=== PATIENT | female | born 1960 | race Caucasian/White ===

== ENCOUNTER 2017-11-19 10:28 | Inpatient (IN) ==
--- NOTE | 2017-11-19 12:28 | Emergency Department Note ---
General Adult HPI - General Chief complaint: Recheck/Abnormal Lab/Rx Stated complaint: Recheck Time Seen by Provider: 11/19/17 10:37 Source: patient Mode of arrival: ambulatory Limitations: no limitations - History of Present Illness HPI Narrative: This patient came to emergency about 2 AM with abdominal pain flank pain and was diagnosed with pyelonephritis which does appear to be a true diagnosis based on urinalysis. Her CT scan is been over read by the radiologist today showing concern for a perforated peptic ulcer. Patient was brought back to the emergency room where she was reevaluated. She has minimal pain at this time and minimal tenderness. I have consulted the surgeon transportation inspector Dr. Allen to evaluate the patient and she is here in the emergency room doing that. - Related Data Home Medications Medication Instructions Recorded Confirmed Dicyclomine [Bentyl] 10 mg PO QDAY 11/19/17 11/19/17 LORazepam [Ativan] 1 mg PO ONCE PRN 11/19/17 11/19/17 Zolpidem [Ambien] 5 mg PO HSP PRN 11/19/17 11/19/17 Previous Rx's Medication Instructions Recorded Ciprofloxacin [Cipro] 500 mg PO BID #20 tab 11/19/17 traMADol [Ultram] 50 mg PO Q4-6HP PRN #14 tab 11/19/17 Allergies Allergy/AdvReac Type Severity Reaction Status Date / Time No Known Drug Allergies Allergy Verified 11/19/17 02:10 Review of Systems All systems ED: reviewed and negative except as stated. Past Medical History - Past Medical History [facility] Narrative: Medical History Nausea & vomiting (Acute) UTI (urinary tract infection) (Acute) Medical history: Reports: other (IBS) Psychiatric history: Reports: anxiety Surgical history ED: Reports: non-contributory - Social History smoking status: Former smoker Alcohol use: Reports: Unknown Drug use: Reports: unknown Physical Exam Limitations: no limitations General appearance: alert Head: atraumatic Eye: Present: normal appearance ENT: normal exam Neck: Present: normal inspection Chest: Present: normal inspection Respiratory: Present: normal lung sounds bilaterally Cardiovascular: Present: regular rate, normal rhythm, normal heart sounds Abdominal: Present: soft. Absent: distention, tenderness Neurological: Present: alert Psychiatric: Present: normal affect, normal mood Skin: Present: warm, dry, intact Course Vital Signs Temperature 97.9 F 11/19/17 10:30 Pulse Rate 72 04/19/18 10:30 Respiratory Rate 18 11/19/17 10:30 Blood Pressure 163/102 11/19/17 10:30 Pulse Oximetry (%) 98 11/19/17 10:30 Temperature 97.9 F 11/19/17 10:30 Pulse Rate 67 11/19/17 12:55 Respiratory Rate 14 11/19/17 12:55 Blood Pressure 174/94 11/19/17 12:55 Pulse Oximetry (%) 98 11/19/17 12:55 Medical Decision Making - MDM Narrative Medical decision making narrative: This patient was admitted to the hospital by Dr. Allen for observation after an NG tube was placed. Disposition Pt seen by [facility] C[facility]/PA only: No Clinical Impression: UTI (urinary tract infection), Abdominal pain Disposition: Xfer As Outpt/Obs ([facility]) Condition: Good Time of Disposition: 13:23
[2017-11-19] MEDS ORDERED: PANTOPRAZOLE 80 MG in 0.9 % SODIUM CHLORIDE 100 ML IV SCH (12:30)
--- NOTE | 2017-11-19 12:58 | XRay Report ---
CLINICAL INFORMATION: Suspect perforated pyloric peptic ulcer ulcer. NG placement COMPARISON: None. FINDINGS: NG tube overlies the gastric body. Stool gas pattern is unremarkable. Contrast from CT performed approximately eight hours prior is seen within the large bowel;. Very small amount of gas is seen in the right upper quadrant is indeterminate location. There is no subdiaphragmatic air, although the film was taken supine position IMPRESSION: NG tube overlies the gastric body. No gross evidence of free air although this is a supine film which is typically insensitive for the presence small amounts of free air Interpreted and Authenticated by: Aron Olivier 11/19/17
[2017-11-19] MEDS: DEXTROSE 5%-1/2NS W/20MEQ KCL 1,000 ML IV SCH ×2 (13:53→22:52)
[2017-11-19] MEDS: PIPERACILLIN SODIUM/TAZOBACTAM 3.375 GM in DEXTROSE 5% IN WATER 50 ML IV SCH ×2 (13:55→21:56)
--- NOTE | 2017-11-19 14:42 | Consultation ---
DATE OF CONSULTATION: 11/19/2017 CHIEF COMPLAINT: The patient is seen in consultation at the request of Dr. Ocasio in the emergency department for a finding on a followup reading on a CT scan of a perforated peptic ulcer. Initial CT reading by teleradiology showed normal stomach and small bowel. No mention of this finding. HISTORY OF PRESENT ILLNESS: This is a 57-year-old woman who presented to the emergency department in the middle of last night with complaints of left upper abdominal pain. History is taken from the patient and supplied in part by her significant other who accompanies her at this visit. The patient states that for the past several months she has had problems with left upper abdominal pain, and when describing this puts her hand on the left upper quadrant just below the ribs. She states over the past couple of months, the pain has become more frequent, and it is associated with vomiting. She describes herself as having episodes where she will develop significant pain on the left upper part of her abdomen. She immediately will have a sensation out of the blue of vomiting without any preceding nausea, and then after vomiting she feels better. Mostly her emesis consists of yellow, thick fluid though at times she reports having vomited non-digested food, some of which may be food that she had several days ago. She also reports that she has had pain in the right upper abdomen for several years, but that has been chronic and has not changed. Regarding most recent pain that brought her to the ER, she states that she had an episode on Thursday of last week followed by emesis and then she immediately felt better. She had a similar episode on Thursday and that got better as well. She did have some pain yesterday when presenting to the ER and states that that pain has also improved. She did get one dose of pain medicine in the emergency department last night in the middle of the night. She has not taken any pain medications since discharge from the ER. Currently, she reports that she has no pain in her abdomen. She has been on dicyclomine for her upper abdominal pain for at least a year. She states that it had helped the right upper abdominal pain and that seems to be stable. It has never done anything to help the left-sided upper abdominal pain. Review of her medical records reveals patient underwent an EGD on 12/05/[address] Peña in [place]. Review of that note shows the esophagus, stomach and duodenum were examined and are reportedly normal. Biopsies taken at that time were negative for H. pylori. Duodenal mucosa had intact villous architecture and no increase in intraepithelial lymphocytes. Biopsies were negative for gastric metaplasia. Mild chronic gastritis was noted. In review of clinic notes from her evaluation at that time, it seems there was a CT scan performed in 07/2016. I have reviewed the images and reports from that scan, and there was noted to be a normal pancreas but a thickened wall of the pylorus suggestive of peptic ulcer disease. This scan was done prior to her evaluation with EGD. Review of the clinic notes also shows that the patient was taking Celebrex at that time, and the recommendation to stop this was made. She states that she still takes the Celebrex for hip pain. She also reports that recently she has had some aggravated pain and has been adding in ibuprofen intermittently to this. Other than the symptoms reported above, she denies any other GI symptoms of significant changes in her bowel movements. She says that at times she has constipation and at times normal or slightly loose stools, but this is fairly regular for her. REVIEW OF SYSTEMS: CONSTITUTIONAL: Denies fevers. Denies unintended or unexpected weight loss. CARDIOVASCULAR: Denies history of LA. Denies dyspnea on exertion. Denies chest pain or pressure at rest or with exertion. PULMONARY: Denies any history of asthma or emphysema. : Reports a history of interstitial cystitis. Has passed blood in her urine recently. Denies dysuria. NEUROLOGIC: Denies any history of seizure disorder or stroke. HEMATOLOGIC: Denies any history of DVT or PE. PAST MEDICAL HISTORY: Glaucoma, anxiety, chronic upper abdominal pain as per HPI, SI joint pain. MEDICATIONS: 1. Dicyclomine. 2. Ambien. 3. ___ 4. Lorazepam. 5. Methocarbamol. 6. Celebrex. 7. Recent addition of ibuprofen intermittently. ALLERGIES: No known drug allergies. SOCIAL HISTORY: The patient lives locally here in [place]. She works at the [employer]. She has a significant other who accompanies her here in this ER visit. She is a past smoker. She quit 30 years ago and smoked a half pack of cigarettes a day for approximately 10 years before then. She reports no current tobacco use. She reports occasional alcohol use, approximately 3 drinks a month. Denies any recreational drug use. PHYSICAL EXAMINATION: VITAL SIGNS: Temperature 97.9, pulse 72, respirations 18, blood pressure 163/102, O2 saturations 98% on room air. GENERAL APPEARANCE: This is a well-developed, well-nourished woman in no distress. She is sitting in the hospital bed on stretcher. No IVs are in place as she had previously been released from the ER and was called back. She is alert and oriented and appropriate in conversation. The patient is in good spirits and joking throughout the interview. HEENT: Head is normocephalic. Sclerae white. Mucous membranes are moist. CHEST: Breath sounds are clear to auscultation bilaterally. No rales or wheezes are heard. CARDIOVASCULAR: Reveals a regular rate and rhythm. ABDOMEN: Flat, soft, nontender to palpation in all four quadrants and nontender in the midepigastric region. The patient states that the pain that she had prior to her initial admit to the ER had completely resolved. There is no guarding on exam. No masses palpated. Percussion and palpation of the costovertebral angles reveals no tenderness. EXTREMITIES: Distal pulses are easily palpable. No edema. LABS AND STUDIES: CBC done last night in the emergency department showed white blood cell count of 9, hemoglobin of 12.9, hematocrit 37.8. There is a mild left shift with 79% granulocytes with upper limit of normal at 78%. Serum chemistries show a sodium of 135, potassium 3.6, chloride 97, CO2 24, BUN 22, creatinine 1.1, glucose 116, total bilirubin 0.4, AST 32, ALT 27, alkaline phosphatase 54, albumin 3.9, amylase 48, lipase 57. Urinalysis was negative for leukocyte esterase and nitrates. Occult blood was present with RBCs at 22 and WBC is also elevated at 20. Urine was reflex to culture. CT scan images were reviewed with the radiologist. Final impression is a 7 mm ruptured peptic ulcer in the superior wall of the gastric pylorus. There is a small amount of air and contrast seen passing through this area into the right upper quadrant. There does not appear to be free air beyond the area right at the area of perforation. There is some stranding in the left perinephric space. ASSESSMENT AND PLAN: Peptic ulcer with perforation by CT findings, the patient currently asymptomatic. This finding was not noted on initial teleradiology reading and was found this morning on review by in-house radiologist. The patient was called back to the ER because of this finding. She, however, remains fairly asymptomatic since her discharge from the ER earlier today. She is showing no signs of toxicity, including that her white blood cell count is fairly normal and her pulse remains normal and she has been afebrile. Additionally, she has no tenderness on examination of her abdomen. Clinically, she appears well and stable and given the small amount of free air noted on CT scan, it seems reasonable to try and manage this nonoperatively with gastric decompression, PPI use intravenously, bowel rest and antibiotics. If the patient, however, shows progression of illness toward peritonitis then operative intervention would be needed. This case was discussed with Dr. Arcos in GI medicine over the phone who is product management consultant today. He stated that given her asymptomatic presentation and otherwise normal vitals and the limited findings on CT, it seems reasonable to try and manage this nonoperatively as some patients have responded to this in the past. He agrees with PPI use and keeping her decompressed and n.p.o. Prior to restarting any diet, repeat imaging to confirm resolution of the perforation is recommended. He is available to follow up with the patient should her clinical situation change and his intervention is needed. I discussed findings on imaging, labs, and exam with the patient and her significant other who is present during this visit. At this time as she is clinically stable, we discussed options of surgical intervention versus trying nonoperative conservative management. She would like to avoid an operation, especially given that she is feeling well right now. I explained to her that there is not a guarantee that conservative management would work, but it seems reasonable to try, and if she shows progression toward peritonitis then operative intervention would be needed. She verbalized understanding and agreement with this plan. NG tube was placed in the emergency department and PPI was started. She will be admitted to the floor where she will be kept n.p.o. and started on IV fluids for maintenance. Followup exams and labs will be obtained while monitoring her progress. RC:[email or web address] Job ID: [id number] Doc ID: [id number] Karey Allen MD
--- NOTE | 2017-11-19 18:48 | General Surgery Progress Note ---
Surgical - Auxillary Note - Subjective Patient Information: Note initiated : 11/19/17 at 6:45 pm Service Date, if different from initiated Date: [] Patient: Linda Mg 57 y/o F admitted on 11/19/17 for Recheck. Chief Complaint: [] Patient sitting up in bed. Feeling well except that NGT is uncomfortable. Denies abdominal pain, or nausea. Afebrile Abdomen is soft, non distended, and non tender to palpation in all quadrants and mid-epigastrum. Will continue current therapy of bowel rest, NGT decompression and PPI.
[2017-11-19] MEDS: SIMBRINZA OU SCH (19:00)
[2017-11-19] MEDS: PANTOPRAZOLE 80 MG in 0.9 % SODIUM CHLORIDE 100 ML IV SCH (21:56)
[2017-11-20] MEDS: PIPERACILLIN SODIUM/TAZOBACTAM 3.375 GM in DEXTROSE 5% IN WATER 50 ML IV SCH ×3 (05:55→21:45)
[2017-11-20 06:22] LABS: Basophils # (Auto) 0 K/mcL (0.0-0.3); Basophils % (Auto) 0.4 % (0.0-2.0); Eosinophils # (Auto) 0.2 K/mcL (0.0-0.7); Eosinophils % (Auto) 3.8 % (0.0-7.0); Granulocytes % (Auto) 49.4 % (38.0-78.0); Lymphocytes # (Auto) 1.7 K/mcL (1.5-4.8); Lymphocytes % (Auto) 35.6 % (15.5-49.0); Mean Cell Volume 90.3 fL (80.0-100.0); Mean Corpuscular HGB Conc 33.8 g/dL (31.0-36.0); Mean Corpuscular Hemoglobin 30.6 pg (26.0-34.0); Monocytes # (Auto) 0.5 K/mcL (0.1-0.9); Monocytes % (Auto) 10.8 % (1.0-12.0); Platelet Count 210 K/mcL (140-440); RBC 4.03 M/mcL (4.00-5.20); Red Cell Distribution Width 12.3 % (11.5-14.5)
[2017-11-20 06:56] LABS: ALT/SGPT 19 U/l (0-40); Albumin 3.3 gm/dL (3.2-5.2); Albumin/Globulin Ratio 1.3 (1.0-2.3); Alkaline Phosphatase 46 U/L (39-117); Blood Urea Nitrogen 10 mg/dl (6-20)
[2017-11-20] MEDS: SIMBRINZA OU SCH ×2 (09:04→20:17)
[2017-11-20] MEDS: PANTOPRAZOLE 80 MG in 0.9 % SODIUM CHLORIDE 100 ML IV SCH ×2 (09:04→20:17)
[2017-11-20] MEDS: DEXTROSE 5%-1/2NS W/20MEQ KCL 1,000 ML IV SCH ×3 (10:19→21:44)
--- NOTE | 2017-11-20 10:48 | General Surgery Progress Note ---
Surgical - Auxillary Note - Subjective Patient Information: Note initiated : 11/20/17 at 10:43 am Service Date, if different from initiated Date: [] Patient: Linda Mg 57 y/o F admitted on 11/19/17 for Recheck. Chief Complaint: [] Patient reports a good night. No complaints of pain, nausea, or emesis. No fevers or chills. Vital Signs Temp Pulse Resp BP Pulse Ox 97.5 F 68 18 158/89 98 11/20/17 07:01 11/20/17 04:00 11/20/17 07:01 11/20/17 07:01 11/20/17 07:01 Period Temp Pulse Resp BP Sys/Cm Pulse Ox Last 24 Hr 97.5 F-98.4 F 62-68 14-18 110-174/71-102 96-100 Intake and Output 11/19/17 11/20/17 11/20/17 21:59 05:59 13:59 Intake Total 50 / 50 1045 / 1045 1100 / 1100 Output Total 975 / 975 550 / 550 400 / 400 Balance -925 / -925 495 / 495 700 / 700 Weight 127 lb 8 oz PE: No distress. Chest: clear bilaterally CV: regular rate and rhythm ABD: soft, non tender in all quadrants and midepigastrium. No guarding, no rebound. NGT output scant and clear. CBC and Chem 7 11/20/17 04:43 11/20/17 04:43 A/P: Peptic ulcer with perforation on CT imaging. Clinically stable and asymptomatic. No signs of toxicity. Will continue conservative management with NGT decompression, NPO, PPI, and abx. Following clinical course. If maintains stability after at least 72 hrs of tx then repeat imaging with Gastric contrast to see if perforation has sealed before starting clear liquids.
--- NOTE | 2017-11-20 17:43 | General Surgery Progress Note ---
Surgical - Auxillary Note - Subjective Patient Information: Note initiated : 11/20/17 at 5:40 pm Service Date, if different from initiated Date: [] Patient: Linda Mg 57 y/o F admitted on 11/19/17 for Recheck/Peptic Ulcer with Perforation. Chief Complaint: [] Patient just out of the shower and fixing her hair. Moving without guarding to get to bed. Denies abdominal pain, nausea, distention, or emesis. Afebrile, VSS No distress Abdomen is soft, flat and non tender to palpation in all quadrants and midepigastrium. No CVA or back tenderness to palpation or percussion. A/P: Clinically remains asymptomatic. Continue current therapy
[2017-11-20] MEDS ORDERED: LORazepam 2 MG/ML VIAL IV PRN (18:52)
[2017-11-21 04:59] LABS: Basophils # (Auto) 0 K/mcL (0.0-0.3); Basophils % (Auto) 0.5 % (0.0-2.0); Eosinophils # (Auto) 0.3 K/mcL (0.0-0.7); Eosinophils % (Auto) 5.1 % (0.0-7.0); Granulocytes % (Auto) 58.9 % (38.0-78.0); Lymphocytes # (Auto) 1.4 K/mcL (1.5-4.8); Mean Cell Volume 90.8 fL (80.0-100.0); Mean Corpuscular Hemoglobin 30.9 pg (26.0-34.0); Monocytes # (Auto) 0.5 K/mcL (0.1-0.9); Monocytes % (Auto) 9.5 % (1.0-12.0); Platelet Count 211 K/mcL (140-440); RBC 4.14 M/mcL (4.00-5.20); Red Cell Distribution Width 12.4 % (11.5-14.5)
[2017-11-21] MEDS: DEXTROSE 5%-1/2NS W/20MEQ KCL 1,000 ML IV SCH ×4 (05:09→21:35)
[2017-11-21] MEDS: PANTOPRAZOLE 80 MG in 0.9 % SODIUM CHLORIDE 100 ML IV SCH ×3 (05:09→16:51)
[2017-11-21 05:28] LABS: Blood Urea Nitrogen 6 mg/dl (6-20)
[2017-11-21] MEDS: PIPERACILLIN SODIUM/TAZOBACTAM 3.375 GM in DEXTROSE 5% IN WATER 50 ML IV SCH ×3 (05:36→21:47)
[2017-11-21] MEDS: SIMBRINZA OU SCH ×2 (07:49→21:34)
--- NOTE | 2017-11-21 08:18 | General Surgery Progress Note ---
Surgical - Auxillary Note - Subjective Patient Information: Note initiated : 11/21/17 at 8:11 am Service Date, if different from initiated Date: [] Patient: Linda Mg 57 y/o F admitted on 11/19/17 for Recheck/Peptic Ulcer with Perforation. Chief Complaint: [] Ms. Mg is sitting up in bed. IV site lost this morning but otherwise ok. She denies pain. Denies abdominal or back discomfort. No fevers or chills. Passed stool. Did not sleep well. Low dose ativan ordered last night but not helpful. Says she usually takes ambien at home or sometimes 1mg of Ativan. Vital Signs Temp Pulse Resp BP Pulse Ox 97.3 F 63 16 124/80 96 11/21/17 07:22 11/21/17 04:00 11/21/17 07:22 11/21/17 07:22 11/21/17 07:22 Period Temp Pulse Resp BP Sys/Cm Pulse Ox Last 24 Hr 97.2 F-98.4 F 56-63 14-18 110-167/71-97 96-100 Intake and Output 11/20/17 11/21/17 11/21/17 21:59 05:59 13:59 Intake Total 1150 / 1150 50 / 50 150 / 150 Output Total 500 / 500 1000 / 1000 Balance 650 / 650 -950 / -950 150 / 150 Weight 130 lb 8 oz PE: Patient sitting up in bed in no distress. NGT in place with mostly clear gastric juice output in container and some clear yellow bile in tube. Chest: clear bilaterally CV: regular rate and rhythm ABD: flat, soft, non tender to palpation. No CVA or back tenderness to percussion or palpation. CBC and Chem 7 11/21/17 04:13 11/21/17 04:13 A/P: Perforated peptic ulcer on imaging: clinically asymptomatic. Stable on conservative management with NGT decompression and PPI tx. Plan continue to complete 72 hrs and then repeat imaging to r/o persistent perforation before starting p.o. Poor sleep: will increase dose of ativan at HS (as a PRN). Patient remains NPO for now so no ambien.
[2017-11-21] MEDS ORDERED: 0.9 % SODIUM CHLORIDE 250 ML IV SCH (09:00)
--- NOTE | 2017-11-21 13:00 | General Surgery Progress Note ---
Surgical - Auxillary Note - Subjective Patient Information: Note initiated : 11/21/17 at 12:59 pm Service Date, if different from initiated Date: [] Patient: Linda Mg 57 y/o F admitted on 11/19/17 for Recheck/Peptic Ulcer with Perforation. Chief Complaint: [] Patient resting in bed. No complaints. Denies abdominal pain, nausea or emesis. Non tender on exam of abdomen and no back or CVA tenderness.
--- NOTE | 2017-11-21 18:14 | General Surgery Progress Note ---
Surgical - Auxillary Note - Subjective Patient Information: Note initiated : 11/21/17 at 6:12 pm Service Date, if different from initiated Date: [] Patient: Linda Mg 57 y/o F admitted on 11/19/17 for Recheck/Peptic Ulcer with Perforation. Chief Complaint: [] Ms Mg resting in bed. Has been up walking earlier. Has passes another stool today. Denies abdominal pain or discomfort. No nausea or emesis. Abdomen is soft and non tender. No CVA or back tenderness. Continue current tx.
[2017-11-21] MEDS: 0.9 % SODIUM CHLORIDE 100 ML IV SCH ×2 (19:34→23:41)
[2017-11-21] MEDS: LORazepam 2 MG/ML VIAL IV PRN ×2 (21:47→22:45)
[2017-11-22] MEDS: PANTOPRAZOLE 80 MG in 0.9 % SODIUM CHLORIDE 100 ML IV SCH ×4 (00:59→22:54)
[2017-11-22] MEDS: DEXTROSE 5%-1/2NS W/20MEQ KCL 1,000 ML IV SCH ×4 (01:45→21:50)
[2017-11-22] MEDS: 0.9 % SODIUM CHLORIDE 100 ML IV SCH ×5 (04:39→19:49)
[2017-11-22 05:51] LABS: Basophils # (Auto) 0 K/mcL (0.0-0.3); Basophils % (Auto) 0.4 % (0.0-2.0); Eosinophils # (Auto) 0.2 K/mcL (0.0-0.7); Eosinophils % (Auto) 3.8 % (0.0-7.0); Lymphocytes # (Auto) 1.4 K/mcL (1.5-4.8); Lymphocytes % (Auto) 27.8 % (15.5-49.0); Mean Cell Volume 89.7 fL (80.0-100.0); Mean Corpuscular HGB Conc 33.8 g/dL (31.0-36.0); Mean Corpuscular Hemoglobin 30.3 pg (26.0-34.0); Monocytes # (Auto) 0.4 K/mcL (0.1-0.9); Platelet Count 214 K/mcL (140-440); RBC 4.34 M/mcL (4.00-5.20); Red Cell Distribution Width 11.8 % (11.5-14.5)
[2017-11-22] MEDS: PIPERACILLIN SODIUM/TAZOBACTAM 3.375 GM in DEXTROSE 5% IN WATER 50 ML IV SCH ×3 (05:56→21:51)
[2017-11-22] MEDS: SIMBRINZA OU SCH ×2 (08:30→21:51)
--- NOTE | 2017-11-22 08:35 | General Surgery Progress Note ---
Surgical - Auxillary Note - Subjective Patient Information: Note initiated : 11/22/17 at 8:16 am Service Date, if different from initiated Date: [] Patient: Linda Mg 57 y/o F admitted on 11/19/17 for Recheck/Peptic Ulcer with Perforation. Chief Complaint: [] Ms. Mg is resting in bed. Says she slept last night and feeling more rested from this. Denies abdominal pain, nausea, or vomiting. Vital Signs Temp Pulse Resp BP Pulse Ox 98.6 F 74 18 119/80 97 11/22/17 07:21 11/22/17 04:00 11/22/17 07:21 11/22/17 07:21 11/22/17 07:21 Period Temp Pulse Resp BP Sys/Cm Pulse Ox Last 24 Hr 97.6 F-98.6 F 66-74 14-18 119-162/80-92 96-99 Intake and Output 11/21/17 11/22/17 11/22/17 21:59 05:59 13:59 Intake Total 1141 / 1141 320 / 320 50 / 50 Output Total 1050 / 1050 1375 / 1375 Balance 91 / 91 -1055 / -1055 50 / 50 Weight 131 lb PE: No distress. Chest: clear bilaterally CV: regular rhythm and rate ABD:Flat, soft, non tender, no guarding. No CVA or back tenderness. EXT: Warm, no edema CBC and Chem 7 11/22/17 05:06 11/21/17 04:13 A/P: peptic ulcer with perforation by imaging. Has been clinically stable with PPI and NGT decompression Plan UGI with gastrograffin in a.m. to see if evidence of persistent perforation.
--- NOTE | 2017-11-22 15:53 | General Surgery Progress Note ---
Surgical - Auxillary Note - Subjective Patient Information: Note initiated : 11/22/17 at 3:51 pm Service Date, if different from initiated Date: [] Patient: Linda Mg 57 y/o F admitted on 11/19/17 for Recheck/Peptic Ulcer with Perforation. Chief Complaint: [] Patient reports she has been well today. No complaints. Afebrile Abdomen is soft and non tender on exam. No back or CVA tenderness. A/P: Peptic ulcer with contained perforation on CT imaging--asymptomatic Patient has been asymptomatic since admission and on bowel rest and PPI. Will check gastrograffin study in a.m.
[2017-11-22] MEDS: LORazepam 2 MG/ML VIAL IV PRN ×2 (22:02→22:30)
[2017-11-23] MEDS: 0.9 % SODIUM CHLORIDE 100 ML IV SCH ×4 (00:32→15:08)
[2017-11-23] MEDS: PIPERACILLIN SODIUM/TAZOBACTAM 3.375 GM in DEXTROSE 5% IN WATER 50 ML IV SCH ×3 (06:36→22:31)
[2017-11-23] MEDS: PANTOPRAZOLE 80 MG in 0.9 % SODIUM CHLORIDE 100 ML IV SCH ×2 (06:36→12:15)
[2017-11-23] MEDS: SIMBRINZA OU SCH ×2 (08:20→21:04)
[2017-11-23] MEDS ORDERED: DIATRIZOATE MEGLU/DIATRIZO SOD 30 ML BOTTLE PO ONE (09:26)
[2017-11-23] MEDS: DEXTROSE 5%-1/2NS W/20MEQ KCL 1,000 ML IV SCH (10:10)
--- NOTE | 2017-11-23 15:35 | General Surgery Progress Note ---
Subjective Patient reports: feels better (Is), pain is less, flatus, bowel movement, afebrile Narrative: Note initiated : 11/23/17 at 3:33 pm Service Date, if different from initiated Date: [] Patient: Linda Mg 57 y/o F admitted on 11/19/17 for Recheck/Peptic Ulcer with Perforation. Chief Complaint: [Is patient continues to improve. She has much less abdominal pain and she has remained afebrile. She had an upper GI this morning which did not show evidence of a leak from her gastroduodenum. She complains of hunger. She denies nausea. She has had multiple bowel movements since the upper GI study] Objective Temp Pulse Resp BP Pulse Ox 98.1 F 67 12 149/92 99 11/23/17 11:39 11/23/17 11:39 11/23/17 11:39 11/23/17 11:39 11/23/17 11:39 - Additional Data Intake & Output - Last 24 hours: Intake & Output 11/21/17 11/22/17 11/23/17 11/24/17 05:59 05:59 05:59 05:59 Intake Total 2350 / 2350 2611 / 2611 2734 / 2734 1108 / 1108 Output Total 2100 / 2100 3175 / 3175 2225 / 2225 700 / 700 Balance 250 / 250 -564 / -564 509 / 509 408 / 408 Weight 130 lb 8 oz 131 lb 134 lb 11.2 oz 134 lb 11.2 oz - General physical appearance well developed, well nourished, no distress, severe distress - Eyes PERRL, normal ocular movement - ENT normal pinna, normal nares, normal mucosa, no hearing loss, no congestion - Neck no masses, no bruits, trachea midline, no lymphadectomy, no venous distension - Respiratory normal expansion, normal respiratory effort, clear to percussion, clear to auscultation - Cardiovascular Cardiovascular exam: Present: normal rate and rhythm, irregular rhythm, RRR, +S1 , +S2. Absent: JVD - Abdomen non tender, bowel sounds (present), surgical scars (none), masses (none) - Integumentary no rash, no growths, no abnormal pigmentation - Neurologic normal coordination, normal sensation - Musculoskeletal normal gait - Psychiatric oriented to time, oriented to person, oriented to place, speech is normal, memory intact - Labs 11/22/17 05:06 11/21/17 04:13 Assessment and Plan (1) Perforated gastric ulcer Status: Acute Assessment and plan: Discontinue nasogastric tube Saline lock IV Advance to GI soft diet We will switch to oral meds in the morning Current Visit: Yes - Time Spent With Patient Total time spent is greater than 50% in coordination of care (as documented) at patient's floor/unit and/or counseling patient:
[2017-11-23] MEDS ORDERED: traMADol 50 MG TABLET PO PRN (15:39)
[2017-11-23] MEDS: PANTOPRAZOLE 40 MG VIAL IV SCH (17:14)
[2017-11-23] MEDS: METOCLOPRAMIDE 10 MG/2 ML VIAL IV SCH ×2 (17:24→23:19)
--- NOTE | 2017-11-23 18:34 | XRay Report ---
CLINICAL INFORMATION: Perforating peptic ulcer in the superior patellar wall on prior CT COMPARISON: Abdominal CT from 11/19/2017 TECHNIQUE: Water-soluble enteric contrast was administered via syringe an indwelling NG to and multiple films were obtained over 1.5 hours of the stomach and small bowel FINDINGS: The stomach is normal size and configuration with unremarkable rugal fold pattern. There is mild irregularity in the superior pylorus with likely indicates small healed ulceration. There is no leak extravasation to suggest a perforation open to the mesenteric cavity. The duodenum, jejunum and ileum are normal in contour and caliber with thin uniform plicae circulares folds and wall. Small bowel transit time is approximately one hour IMPRESSION: Mild irregularity of the superior pylorus representing a healed ulcer. No extravasation to suggest free perforation Interpreted and Authenticated by: Aron Olivier 11/23/17
[2017-11-23] MEDS ORDERED: ZOLPIDEM 5 MG TABLET PO PRN (21:00)
[2017-11-24] MEDS: PIPERACILLIN SODIUM/TAZOBACTAM 3.375 GM in DEXTROSE 5% IN WATER 50 ML IV SCH ×2 (06:14→13:50)
[2017-11-24] MEDS: METOCLOPRAMIDE 10 MG/2 ML VIAL IV SCH ×4 (06:24→18:09)
[2017-11-24] MEDS: PANTOPRAZOLE 40 MG VIAL IV SCH ×2 (07:25→18:09)
[2017-11-24] MEDS: SIMBRINZA OU SCH (07:25)
--- NOTE | 2017-11-24 19:18 | Discharge Summary ---
Providers - Providers Patient information: Note initiated : 11/24/17 at 7:16 pm Service Date, if different from initiated Date: [] Patient: Linda Mg 57 y/o F admitted on 11/19/17 for Recheck/Peptic Ulcer with Perforation. Chief Complaint: [] Date of admission: 11/19/17 Discharge date: 11/24/17 Attending physician: Anup Jama Hospitalization Hospital course: 57-year-old female admitted on 19 November for evaluation of abdominal pain and CT evidence of suggested perforated duodenal ulcer. Patient admitted and made n.p.o. with nasogastric suction. She received antibiotics and PPI. She has done well. Her diet is slowly advanced after an upper GI showed no evidence of leak. The upper GI did show a duodenal ulcer. Patient is clinically stable and is asymptomatic. She is tolerating diet without difficulty. She will be discharged home on pantoprazole and sucralfate. Discharge diagnosis: Perforated duodenal ulcer, contained Reason for admission: Abdominal pain with perforated ulcer Pertinent studies/significant findings: CT of abdomen and pelvis with contrast Upper GI series with oral contrast Complications: None Exam Temp Pulse Resp BP Pulse Ox 98.6 F 69 18 157/93 100 11/24/17 16:00 11/24/17 16:00 11/24/17 16:00 11/24/17 16:00 11/24/17 16:00 - General physical appearance well developed, well nourished, no distress - Eyes PERRL, normal ocular movement - ENT normal pinna, normal nares, normal mucosa, no hearing loss, no congestion - Head Head exam IM: Present: atraumatic, normocephalic - Neck no masses, no bruits, trachea midline, no lymphadectomy, no venous distension - Cardiovascular Cardiovascular exam IM: Present: normal rate and rhythm - Respiratory normal expansion, normal respiratory effort, clear to percussion, clear to auscultation - Abdomen Abdomen: Present: soft, non tender, bowel sounds Hernia: Present: none - Genitourinary Present: normal external genitalia - Integumentary Present: no rash, no growths, no abnormal pigmentation - Neurologic Present: normal coordination, normal sensation - Musculoskeletal Present: normal gait, normal posture - Psychiatric Present: oriented to time, oriented to person, oriented to place, speech is normal, memory intact Discharge Plan - Patient/Caregiver Discharge Instructions Activity: increase activity as tolerated Diet: Regular Diet Additional Instructions: Advance diet as tolerated Out of work for 2 weeks Follow-up office visit in 2 weeks Prescriptions: Pantoprazole [Protonix] 40 mg PO QAMAC #30 tablet Sucralfate [Carafate] 1 gm PO QIDP PRN #120 tablet PRN Reason: Abdominal Distention - Follow up Plan Follow up with: Anup Jama MD [Physician] - 12/08/17 9:30 am Disposition: Home, Self-Care Prognosis: Good Rehab Potential: Good I certify that the patient requires SNF services.: No Overall status at discharge: patient is not back to baseline Pending Studies Resuscitation Status Full Code Diet GI Soft/Transitional Start ThuNov 24 0820 Piperacillin Sod/Tazobactam (Sod 3.375 gm/ Dextrose) 50 mls @ 100 mls/hr IV Q8H YASHIRA Last Admin: 11/24/17 13:50 Dose: Infusion: 11/24/17 07:00 Dose: 0 mls/hr Admin: 11/24/17 06:14 Dose: 100 mls/hr Infusion: 11/23/17 23:19 Dose: 0 mls/hr Admin: 11/23/17 22:31 Dose: 100 mls/hr Infusion: 11/23/17 13:55 Dose: 0 mls/hr Admin: 11/23/17 13:25 Dose: 100 mls/hr Infusion: 11/23/17 07:06 Dose: 100 mls/hr Admin: 11/23/17 06:36 Dose: 100 mls/hr Infusion: 11/22/17 22:54 Dose: 0 mls/hr Admin: 11/22/17 21:51 Dose: 100 mls/hr Infusion: 11/22/17 18:47 Dose: 0 mls/hr Admin: 11/22/17 13:40 Dose: 100 mls/hr Infusion: 11/22/17 06:34 Dose: 0 mls/hr Admin: 11/22/17 05:56 Dose: 100 mls/hr Infusion: 11/21/17 23:42 Dose: 0 mls/hr Admin: 11/21/17 21:47 Dose: 100 mls/hr Infusion: 11/21/17 15:15 Dose: 0 mls/hr Admin: 11/21/17 14:45 Dose: 100 mls/hr Infusion: 11/21/17 06:28 Dose: 0 mls/hr Admin: 11/21/17 05:36 Dose: 100 mls/hr Infusion: 11/20/17 23:33 Dose: 0 mls/hr Admin: 11/20/17 21:45 Dose: 100 mls/hr Infusion: 11/20/17 18:54 Dose: 0 mls/hr Admin: 11/20/17 14:53 Dose: 100 mls/hr Infusion: 11/20/17 06:25 Dose: 100 mls/hr Admin: 11/20/17 05:55 Dose: 100 mls/hr Infusion: 11/19/17 22:26 Dose: 100 mls/hr Admin: 11/19/17 21:56 Dose: 100 mls/hr Infusion: 11/19/17 16:20 Dose: 0 mls/hr Admin: 11/19/17 13:55 Dose: 100 mls/hr Lorazepam (Ativan) 0.5 - 1 mg IV HSP PRN PRN Reason: Insomnia Last Admin: 11/22/17 22:30 Dose: 0.5 mg Admin: 11/22/17 22:02 Dose: 0.5 mg Admin: 11/21/17 22:45 Dose: 0.5 mg Admin: 11/21/17 21:47 Dose: 0.5 mg Metoclopramide HCl (Reglan) 10 mg IV Q6 [facility] Last Admin: 11/24/17 18:09 Dose: Admin: 11/24/17 13:49 Dose: Admin: 11/24/17 06:24 Dose: 10 mg Admin: 11/23/17 23:19 Dose: 10 mg Admin: 11/23/17 17:24 Dose: 10 mg Pantoprazole Sodium (Protonix) 40 mg IV BIDAC [facility] Last Admin: 11/24/17 18:09 Dose: Admin: 11/24/17 07:25 Dose: 40 mg Admin: 11/23/17 17:14 Dose: Simbrinza ( Brinzolamide/Brimonidine Tartrate ) Ophthalmic Suspension 1%/0.2% 1 dose OU BID [facility] Last Admin: 11/24/17 07:25 Dose: 1 dose Admin: 11/23/17 21:04 Dose: 1 dose Admin: 11/23/17 08:20 Dose: 1 dose Admin: 11/22/17 21:51 Dose: 1 dose Admin: 11/22/17 08:30 Dose: 1 dose Admin: 11/21/17 21:34 Dose: 1 dose Admin: 11/21/17 07:49 Dose: 1 dose Admin: 11/20/17 20:17 Dose: 1 dose Admin: 11/20/17 09:04 Dose: 1 dose Admin: 11/19/17 19:00 Dose: 1 dose Zolpidem Tartrate (Ambien) 5 mg PO HSP PRN PRN Reason: Insomnia Last Admin: 11/23/17 22:28 Dose: 5 mg Shift Summary 11/24/17 17:38 Shift Summary by Agueda Varela Patient alert and oriented. Up ad matias in room. Vd per bathroom, multiple loose stools. IV infiltrated at noon, stated to leave out and hold IV meds as pt will probably DC. Tolerating soft diet. No nausea. Pain in neck and back using Kpad and ice packs. Initialized on 11/24/17 17:38 - END OF NOTE
== END 2017-11-24 20:20 | disposition home or self-care (01) | DRG 382 ==
LOC: ED 10:28 → MEDSUR 12:57
PROVIDERS: ADMIT Surgery; ATTEND Family Medicine Adult Medicine

== ENCOUNTER 2025-05-11 10:03 | Inpatient (IN) ==
[2025-05-11] MEDS ORDERED: IOPAMIDOL 100 ML BOTTLE IV ONE (10:04)
[2025-05-11 11:07] LABS: Basophils # (Auto) 0.03 K/mcL (0.00-0.30); Basophils % (Auto) 0.2 % (0.0-2.0); Eosinophils # (Auto) 0.18 K/mcL (0.00-0.70); Eosinophils % (Auto) 1.1 % (0.0-7.0); Hematocrit 42.2 % (34.1-44.9); Hemoglobin 13.6 g/dL (11.2-15.7); Lymphocytes # (Auto) 1.28 K/mcL (1.50-4.80); Lymphocytes % (Auto) 8.1 % (15.5-49.0); Mean Corpuscular HGB Conc 32.2 g/dL (31.0-36.0); Monocytes # (Auto) 1.48 K/mcL (0.10-0.90); Monocytes % (Auto) 9.4 % (1.0-12.0); Neutrophils % (Auto) 80.8 % (38.0-78.0); Platelet Count 412 K/mcL (140-440); RBC 4.47 M/mcL (3.59-5.38); WBC 15.8 K/mcL (4.5-11.0)
[2025-05-11 11:28] LABS: INR 1.0 (0.9-1.1); Prothrombin Time 14.0 sec (11.9-14.5)
[2025-05-11] MEDS: PIPERACILLIN SODIUM/TAZOBACTAM 4.5 GM in DEXTROSE 5% IN WATER 50 ML IV ONE (11:28)
[2025-05-11] MEDS: ONDANSETRON 4 MG/2 ML VIAL IV ONE (12:09)
[2025-05-11 12:14] LABS: ALT/SGPT 30 U/L (<40); AST/SGOT 49 U/L (<32); Albumin 3.7 gm/dL (3.2-5.2); Albumin/Globulin Ratio 1.0 (1.0-2.3); Alkaline Phosphatase 110 U/L (39-117); Anion Gap 13.0 (8.0-16.0); Bilirubin,Total 0.6 mg/dL (0.1-1.0); Blood Urea Nitrogen 15 mg/dL (8-23); Calcium 9.9 mg/dL (8.6-10.4); Carbon Dioxide 29 mmol/L (22-30); Chloride 94 mmol/L (96-108); Globulin 3.7 gm/dL (2.2-3.7); Glucose 111 mg/dL (70-105); Potassium 2.6 mmol/L (3.3-5.1); Sodium 136 mmol/L (133-145)
[2025-05-11] MEDS ORDERED: ONDANSETRON 4 MG/2 ML VIAL IV PRN (12:34)
[2025-05-11] MEDS: POTASSIUM CHLORIDE 10 MEQ/100 ML BAG IV SCH (12:55)
[2025-05-11] MEDS: POTASSIUM CHLORIDE 40 MEQ in DEXTROSE 5% IN WATER 500 ML IV ONE (12:56)
[2025-05-11] MEDS: PIPERACILLIN SODIUM/TAZOBACTAM 3.375 GM in DEXTROSE 5% IN WATER 100 ML IV SCH (16:50)
[2025-05-11] MEDS: POTASSIUM PHOSPHATE 40 MEQ in DEXTROSE 5% IN WATER 500 ML IV ONE (18:47)
[2025-05-11] MEDS: ACETAMINOPHEN 1,000 MG/100 ML BAG IV SCH (18:50)
[2025-05-11] MEDS: 0.9 % SODIUM CHLORIDE 1,000 ML IV SCH (18:51)
[2025-05-12] MEDS: fentaNYL 100 MCG/2 ML VIAL IV PRN (00:33)
[2025-05-12 06:39] LABS: Basophils # (Auto) 0.04 K/mcL (0.00-0.30); Basophils % (Auto) 0.3 % (0.0-2.0); Eosinophils # (Auto) 0.25 K/mcL (0.00-0.70); Eosinophils % (Auto) 2.2 % (0.0-7.0); Hematocrit 37.1 % (34.1-44.9); Hemoglobin 11.8 g/dL (11.2-15.7); Lymphocytes # (Auto) 0.93 K/mcL (1.50-4.80); Lymphocytes % (Auto) 8.1 % (15.5-49.0); Mean Corpuscular HGB Conc 31.8 g/dL (31.0-36.0); Monocytes # (Auto) 1.21 K/mcL (0.10-0.90); Monocytes % (Auto) 10.6 % (1.0-12.0); Neutrophils % (Auto) 78.5 % (38.0-78.0); Platelet Count 311 K/mcL (140-440); RBC 3.86 M/mcL (3.59-5.38); WBC 11.4 K/mcL (4.5-11.0)
[2025-05-12 08:29] LABS: ALT/SGPT 70 U/L (<40); AST/SGOT 63 U/L (<32); Albumin 3.0 gm/dL (3.2-5.2); Albumin/Globulin Ratio 1.0 (1.0-2.3); Alkaline Phosphatase 198 U/L (39-117); Anion Gap 10.0 (8.0-16.0); Bilirubin,Direct 0.3 mg/dL (<0.3); Bilirubin,Total 0.6 mg/dL (0.1-1.0); Blood Urea Nitrogen 11 mg/dL (8-23); Calcium 8.5 mg/dL (8.6-10.4); Carbon Dioxide 25 mmol/L (22-30); Chloride 97 mmol/L (96-108); Globulin 3.0 gm/dL (2.2-3.7); Glucose 96 mg/dL (70-105); Phosphorous 3.3 mg/dL (2.5-4.5); Potassium 2.8 mmol/L (3.3-5.1); Sodium 132 mmol/L (133-145); Triglycerides 90 mg/dL (<150); Uric Acid 2.6 mg/dL (2.5-8.0)
[2025-05-12] MEDS: POTASSIUM CHLORIDE 40 MEQ in DEXTROSE 5% IN WATER 500 ML IV SCH (09:36)
[2025-05-12] MEDS ORDERED: PROPOFOL 200 MG/20 ML VIAL IV ONE (11:09)
[2025-05-12] MEDS ORDERED: DEXAMETHASONE 10 MG/ML VIAL ONE (11:09)
[2025-05-12] MEDS ORDERED: ONDANSETRON 4 MG/2 ML VIAL ONE (11:09)
[2025-05-12] MEDS ORDERED: LIDOCAINE 2% PF 5 ML VIAL ONE (11:09)
[2025-05-12] MEDS ORDERED: PHENYLephrine 1 MG/10 ML SYRINGE (ANEST) ONE (11:52)
[2025-05-12] MEDS ORDERED: ePHEDrine 50 MG/5 ML SYRINGE (ANEST) IV ONE (11:52)
[2025-05-12] MEDS ORDERED: HYDROmorphone 0.5 MG/0.5 ML SYRINGE ONE (12:04)
[2025-05-12] MEDS ORDERED: fentaNYL 100 MCG/2 ML VIAL ONE (12:12)
[2025-05-12] MEDS ORDERED: IPRATROPIUM/ALBUTEROL 3 ML AMPUL.NEB NEB PRN (12:21)
[2025-05-12] MEDS: fentaNYL 100 MCG/2 ML VIAL IV ONE ×2 (12:48→13:11)
[2025-05-13 05:59] LABS: Basophils # (Auto) 0 K/mcL (0.00-0.30); Basophils % (Auto) 0 % (0.0-2.0); Eosinophils # (Auto) 0 K/mcL (0.00-0.70); Eosinophils % (Auto) 0 % (0.0-7.0); Hematocrit 40.2 % (34.1-44.9); Hemoglobin 12.2 g/dL (11.2-15.7); Lymphocytes # (Auto) 1.08 K/mcL (1.50-4.80); Lymphocytes % (Auto) 10.3 % (15.5-49.0); Mean Corpuscular HGB Conc 30.3 g/dL (31.0-36.0); Monocytes # (Auto) 0.49 K/mcL (0.10-0.90); Monocytes % (Auto) 4.7 % (1.0-12.0); Neutrophils % (Auto) 84.6 % (38.0-78.0); Platelet Count 318 K/mcL (140-440); RBC 3.91 M/mcL (3.59-5.38); WBC 10.5 K/mcL (4.5-11.0)
[2025-05-13 06:20] LABS: ALT/SGPT 99 U/L (<40); AST/SGOT 87 U/L (<32); Albumin 2.9 gm/dL (3.2-5.2); Albumin/Globulin Ratio 0.9 (1.0-2.3); Alkaline Phosphatase 350 U/L (39-117); Anion Gap 11.0 (8.0-16.0); Bilirubin,Direct < 0.2 mg/dL (0-0.3); Bilirubin,Total 0.3 mg/dL (0.1-1.0); Blood Urea Nitrogen 6 mg/dL (8-23); Calcium 8.5 mg/dL (8.6-10.4); Carbon Dioxide 18 mmol/L (22-30); Chloride 108 mmol/L (96-108); Globulin 3.4 gm/dL (2.2-3.7); Glucose 99 mg/dL (70-105); Phosphorous 2.3 mg/dL (2.5-4.5); Potassium 4.2 mmol/L (3.3-5.1); Sodium 137 mmol/L (133-145); Triglycerides 117 mg/dL (<150); Uric Acid 1.8 mg/dL (2.5-8.0)
[2025-05-14 05:34] LABS: Basophils # (Auto) 0.04 K/mcL (0.00-0.30); Basophils % (Auto) 0.7 % (0.0-2.0); Eosinophils # (Auto) 0.14 K/mcL (0.00-0.70); Eosinophils % (Auto) 2.3 % (0.0-7.0); Hematocrit 34.2 % (34.1-44.9); Hemoglobin 10.5 g/dL (11.2-15.7); Lymphocytes # (Auto) 2.19 K/mcL (1.50-4.80); Lymphocytes % (Auto) 36.0 % (15.5-49.0); Mean Corpuscular HGB Conc 30.7 g/dL (31.0-36.0); Monocytes # (Auto) 0.51 K/mcL (0.10-0.90); Monocytes % (Auto) 8.4 % (1.0-12.0); Neutrophils % (Auto) 51.3 % (38.0-78.0); Platelet Count 326 K/mcL (140-440); RBC 3.37 M/mcL (3.59-5.38); WBC 6.1 K/mcL (4.5-11.0)
[2025-05-14 05:54] LABS: ALT/SGPT 78 U/L (<40); AST/SGOT 57 U/L (<32); Albumin 2.8 gm/dL (3.2-5.2); Albumin/Globulin Ratio 1.0 (1.0-2.3); Alkaline Phosphatase 279 U/L (39-117); Anion Gap 8.0 (8.0-16.0); Bilirubin,Direct < 0.2 mg/dL (0-0.3); Bilirubin,Total < 0.2 mg/dL (0.1-1.0); Blood Urea Nitrogen 8 mg/dL (8-23); Calcium 8.0 mg/dL (8.6-10.4); Carbon Dioxide 21 mmol/L (22-30); Chloride 113 mmol/L (96-108); Globulin 2.7 gm/dL (2.2-3.7); Glucose 86 mg/dL (70-105); Phosphorous 2.0 mg/dL (2.5-4.5); Potassium 3.5 mmol/L (3.3-5.1); Sodium 142 mmol/L (133-145); Triglycerides 212 mg/dL (<150); Uric Acid 2.1 mg/dL (2.5-8.0)
[2025-05-14] MEDS: POTASSIUM CHLORIDE 40 MEQ in DEXTROSE 5% IN WATER 500 ML IV ONE (08:57)
[2025-05-14] MEDS: POLYETHYLENE GLYCOL 3350 17 GM PACKET PO SCH (11:40)
[2025-05-14] MEDS ORDERED: POLYETHYLENE GLYCOL 3350 17 GM PACKET PO PRN (17:43)
[2025-05-14] MEDS: POTASSIUM PHOSPHATE 66 MEQ/15 ML VIAL IV ONE ×2 (18:44)
[2025-05-14] MEDS: POTASSIUM PHOSPHATE 40 MEQ in DEXTROSE 5% IN WATER 500 ML IV SCH (18:47)
[2025-05-15 11:48] VITALS: TEMP 97.5; O2SAT 95
== END 2025-05-15 17:05 | disposition home or self-care (01) | DRG 346 ==
LOC: MEDSUR 10:03 → ED 10:03 → MEDSUR 14:03
PROVIDERS: ADMIT Family Medicine Adult Medicine; ATTEND Family Medicine Adult Medicine